=== PATIENT | male | born 1945 | race Caucasian/White ===

== ENCOUNTER → 2016-06-22 | Outpatient (CLI) | payer MEDICARE, OTHER ==
[2016-06-22 07:40] LABS: BUN/CREATININE RATIO 17 (0-10)
== END ==
LOC: LAB 06:53
PROVIDERS: Emergency Medicine
DX: E11.9 Type 2 diabetes mellitus without complications (principal); E78.2 Mixed hyperlipidemia; K21.9 Gastro-esophageal reflux disease without esophagitis; M13.861 Other specified arthritis, right knee
CPT/HCPCS: 36415; 80053; 83036

== ENCOUNTER → 2020-05-06 | Outpatient (CLI) | payer MEDICARE, OTHER ==
[2020-05-06 10:52] LABS: HEMOGLOBIN 15.2 gm/dl (14.0-17.5); RED BLOOD COUNT 5.1 M/UL (4.20-5.50); WHITE BLOOD COUNT 6.5 K/UL (4.5-11.0)
[2020-05-06 11:18] LABS: BUN/CREATININE RATIO 12 (0-10)
[2020-05-08 17:12] LABS: CHOLESTEROL, TOTAL 135 mg/dL (100-199); HDL SIZE 8.5 nm (>=9.2); HDL-C 31 mg/dL (>39); HDL-P (TOTAL) 22.2 umol/L (>=30.5); LARGE HDL-P <1.3 umol/L (>=4.8); LARGE VLDL-P 7.9 nmol/L (<=2.7); LDL SIZE 20.8 nm (>20.5); LDL SIZE 20.8 nm (>=20.8); LDL-C 68 mg/dL (0-99); LDL-P 645 nmol/L (<1000); LP-IR SCORE 74 (<=45); SMALL LDL-P 295 nmol/L (<=527); TRIGLYCERIDES 221 mg/dL (0-149)
== END ==
LOC: LAB 09:59
PROVIDERS: Emergency Medicine
DX: Z12.5 Encounter for screening for malignant neoplasm of prostate (principal); E78.5 Hyperlipidemia, unspecified; E11.65 Type 2 diabetes mellitus with hyperglycemia; I10 Essential (primary) hypertension; Z88.1 Allergy status to other antibiotic agents; Z88.8 Allergy status to other drugs, medicaments and biological substances
CPT/HCPCS: 36415; 80053; 83036; 84550; 85025; G0103

== ENCOUNTER 2021-04-06 10:30 | Emergency (ER) | payer MEDICARE, OTHER ==
[2021-04-06 12:52] LABS: HEMOGLOBIN 15.6 gm/dl (14.0-17.5); RED BLOOD COUNT 5.09 M/UL (4.20-5.50); WHITE BLOOD COUNT 4.3 K/UL (4.5-11.0)
[2021-04-06 13:09] LABS: BUN/CREATININE RATIO 15 (0-10)
== END 2021-04-06 14:00 | disposition home or self-care (01) ==
LOC: ER1 10:30
PROVIDERS: Physician Assistant
DX: U07.1 COVID-19 (principal); J12.82 Pneumonia due to coronavirus disease 2019; I51.9 Heart disease, unspecified; E11.9 Type 2 diabetes mellitus without complications; F17.220 Nicotine dependence, chewing tobacco, uncomplicated; Z88.5 Allergy status to narcotic agent
CPT/HCPCS: 0240U; 71045; 80048; 85025; 99284

== ENCOUNTER 2021-04-13 10:26 | Inpatient (IN) | payer MEDICARE, OTHER ==
[~2021-04-13] VITALS: Ht 180.3 cm; Wt 99.8 kg
[~2021-04-13 10:26] MED LIST: DOXYCYCLINE HY100 MG PO; MEDROL4 MG PO; ZITHROMAX250 MG PO
[2021-04-13 11:21] LABS: HEMOGLOBIN 16.1 gm/dl (14.0-17.5); RED BLOOD COUNT 5.04 M/UL (4.20-5.50); WHITE BLOOD COUNT 4.1 K/UL (4.5-11.0)
[2021-04-13 15:04] LABS: BUN/CREATININE RATIO 17 (0-10)
[2021-04-14 03:23] LABS: HEMOGLOBIN 14.4 gm/dl (14.0-17.5); RED BLOOD COUNT 4.83 M/UL (4.20-5.50)
[2021-04-14 03:39] LABS: WHITE BLOOD COUNT 2.1 K/UL (4.5-11.0)
[2021-04-14 03:59] LABS: BUN/CREATININE RATIO 19 (0-10)
[2021-04-14] MEDS ORDERED: LIPITOR TAB 1010 MG PO (15:54)
[2021-04-14] MEDS ORDERED: TRAZODONE HCL100 MG PO (15:55)
[2021-04-14] MEDS ORDERED: GABAPENTIN800 MG PO (15:55)
[2021-04-14] MEDS ORDERED: SINGULAIR10 MG PO (15:55)
[2021-04-14] MEDS ORDERED: ELDERBERRY-VIT1 EACH PO (15:56)
[2021-04-14] MEDS ORDERED: JARDIANCE10 MG PO (15:57)
[2021-04-15 06:42] LABS: RED BLOOD COUNT 4.71 M/UL (4.20-5.50)
[2021-04-15 06:44] LABS: WHITE BLOOD COUNT 3.8 K/UL (4.5-11.0)
[2021-04-15 07:03] LABS: BUN/CREATININE RATIO 20 (0-10)
[2021-04-16 07:28] LABS: HEMOGLOBIN 13.7 gm/dl (14.0-17.5); RED BLOOD COUNT 4.68 M/UL (4.20-5.50); WHITE BLOOD COUNT 4.5 K/UL (4.5-11.0)
[2021-04-16 07:58] LABS: BUN/CREATININE RATIO 20 (0-10)
[2021-04-17 03:43] LABS: HEMOGLOBIN 12.9 gm/dl (14.0-17.5); RED BLOOD COUNT 4.49 M/UL (4.20-5.50)
[2021-04-17 03:46] LABS: WHITE BLOOD COUNT 3.1 K/UL (4.5-11.0)
[2021-04-17 04:49] LABS: BUN/CREATININE RATIO 21 (0-10)
[2021-04-18 03:10] LABS: HEMOGLOBIN 13.7 gm/dl (14.0-17.5); RED BLOOD COUNT 4.63 M/UL (4.20-5.50)
[2021-04-18 03:14] LABS: WHITE BLOOD COUNT 3.9 K/UL (4.5-11.0)
[2021-04-18 03:32] LABS: BUN/CREATININE RATIO 18 (0-10)
[2021-04-19 09:08] LABS: WHITE BLOOD COUNT 6.5 K/UL (4.5-11.0)
[2021-04-19 09:21] LABS: BUN/CREATININE RATIO 16 (0-10)
[2021-04-19] MEDS ORDERED: CEFUROXIME500 MG PO (14:57)
[2021-04-19] MEDS ORDERED: DOXYCYCLINE HY100 M2 PO (14:57)
[2021-04-19] MEDS ORDERED: MEDI-MECLIZINE25 MG PO (15:04)
[2021-04-19] MEDS ORDERED: MYCOSTATIN100000 UTS PO (15:04)
[2021-04-19] MEDS ORDERED: DECADRON6 MG PO (15:04)
[2021-04-19] MEDS ORDERED: SYMBICORT 80-10.2 GM INH (15:04)
[2021-04-19] MEDS ORDERED: PROVENTIL HFA6.7 GM INH (15:04)
[2021-04-19] MEDS ORDERED: PROTONIX 40 MG40 M1 PO (15:04)
== END 2021-04-19 16:00 | disposition home or self-care (01) | DRG 177 ==
LOC: ER1 10:26 → CDU 18:04 → MED SURG 4 04-14 11:51 → CDU 04-14 11:51 → MED SURG 4 04-14 12:29
PROVIDERS: Emergency Medicine; Internal Medicine; ADMIT Internal Medicine
PROC: XW033E5 Introduction of Remdesivir Anti-infective into Peripheral Vein, Percutaneous Approach, New Technology Group 5 (ICD-10-PCS; 2021-04-14)
PROC: 3E0333Z Introduction of Anti-inflammatory into Peripheral Vein, Percutaneous Approach (ICD-10-PCS; 2021-04-14)
PROC: 8E0ZXY6 Isolation (ICD-10-PCS; principal; 2021-04-16)
DX: U07.1 COVID-19 (principal); J12.82 Pneumonia due to coronavirus disease 2019; J15.9 Unspecified bacterial pneumonia; J96.01 Acute respiratory failure with hypoxia; B37.0 Candidal stomatitis; E11.40 Type 2 diabetes mellitus with diabetic neuropathy, unspecified; E78.5 Hyperlipidemia, unspecified; G47.00 Insomnia, unspecified; J30.9 Allergic rhinitis, unspecified; Z83.3 Family history of diabetes mellitus; Z82.49 Family history of ischemic heart disease and other diseases of the circulatory system; Z88.2 Allergy status to sulfonamides; Z88.6 Allergy status to analgesic agent; Z87.891 Personal history of nicotine dependence; E87.6 Hypokalemia; Z86.73 Personal history of transient ischemic attack (TIA), and cerebral infarction without residual deficits; E86.0 Dehydration
CPT/HCPCS: 36415; 71045; 80053; 81001; 82550; 82553; 82962; 83605; 83735; 83874; 84100; 84484; 85025; 85027; 86140; 87040; 93005; 94640; 94664; 94760; 99285; G0378; J0248; J0696; J1100; J1650; J2405; J2550; J7030; U0002

== ENCOUNTER → 2021-07-04 | Outpatient (CLI) | payer MEDICARE, OTHER ==
[~2021-07-04] MED LIST changes: +CEFUROXIME500 MG PO; +DECADRON6 MG PO; +DOXYCYCLINE HY100 M2 PO; +ELDERBERRY-VIT1 EACH PO; +GABAPENTIN800 MG PO; +JARDIANCE10 MG PO; +LIPITOR TAB 1010 MG PO; +MEDI-MECLIZINE25 MG PO; +MYCOSTATIN100000 UTS PO; +PROTONIX 40 MG40 M1 PO; +PROVENTIL HFA6.7 GM INH; +SINGULAIR10 MG PO; +SYMBICORT 80-10.2 GM INH; +TRAZODONE HCL100 MG PO
[2021-07-04 08:27] LABS: HEMOGLOBIN 15.4 gm/dl (14.0-17.5); RED BLOOD COUNT 5.07 M/UL (4.20-5.50); WHITE BLOOD COUNT 12.2 K/UL (4.5-11.0)
[2021-07-04 08:55] LABS: BUN/CREATININE RATIO 12 (0-10)
[2021-07-05 09:18] LABS: CREATININE, URINE 127.3 mg/dL (Not Estab.)
[2021-07-06 13:12] LABS: CHOLESTEROL, TOTAL 127 mg/dL (100-199); HDL SIZE 8.5 nm (>=9.2); HDL-C 30 mg/dL (>39); HDL-P (TOTAL) 22.9 umol/L (>=30.5); LARGE HDL-P 1.5 umol/L (>=4.8); LARGE VLDL-P 11.2 nmol/L (<=2.7); LDL SIZE 20.7 nm (>20.5); LDL SIZE 20.7 nm (>=20.8); LDL-C 66 mg/dL (0-99); LDL-P 665 nmol/L (<1000); LP-IR SCORE 83 (<=45); SMALL LDL-P 189 nmol/L (<=527); TRIGLYCERIDES 185 mg/dL (0-149)
== END ==
LOC: LAB 07:48
PROVIDERS: Emergency Medicine
DX: E11.42 Type 2 diabetes mellitus with diabetic polyneuropathy (principal); I10 Essential (primary) hypertension; K21.9 Gastro-esophageal reflux disease without esophagitis; E78.2 Mixed hyperlipidemia; C92.91 Myeloid leukemia, unspecified in remission
CPT/HCPCS: 36415; 80053; 80061; 82043; 82570; 83036; 83704; 84443; 84550; 85025

== ENCOUNTER → 2021-07-08 | Outpatient (CLI) | payer MEDICARE, OTHER | LOC: RAD 09:22 | DX: J20.9 Acute bronchitis, unspecified (principal); R06.2 Wheezing; R06.02 Shortness of breath | CPT/HCPCS: 71046 ==